=== PATIENT | male | born 1940 | race Hispanic/Latino ===

== ENCOUNTER 2017-04-16 11:03 | Observation (INO) | payer MEDICARE ==
[~2017-04-16] VITALS: Ht 167.6 cm; Wt 113.4 kg
[~2017-04-16 11:03] MED LIST: ADVAIR 100-501 EACH; AMIODARONE HCL200 MG PO; ASPIR 8181 MG PO; ATORVASTATIN CA20 MG PO; ATORVASTATIN CA80 MG PO; CARVEDILOL3.125 MG PO; DEPAKOTE ER500 MG PO; DEXTROSE 50%-WA50 ML IV; DIVALPROEX SOD500 MG PO; FUROSEMIDE20 MG PO; GLIMEPIRIDE1 MG PO; JANUVIA100 MG PO; LANTUS100 UNITS/ SC; LISINOPRIL5 MG PO; METFORMIN HCL1000 MG PO; METOPROLOL SUCC25 MG PO; MYRBETRIQ25 MG PO; MYRBETRIQ50 MG PO; NITROFURANTOIN100 MG PO; NOVOLIN R100 UNIT/1; POTASSIUM CHLO10 ME1 PO; SYMBICORT 16010.2 GM INH; TRAZODONE HCL100 MG PO; VITAMIN C1000 M2 PO; VITAMIN D400 UNIT PO; XARELTO20 MG PO; ZOFRAN ODT4 MG SL; oil of oregano PO
--- NOTE | 2017-04-16 14:54 | Diagnostic Imaging Report ---
PROCEDURE: A single AP view of the chest. COMPARISON: Patients [facility], , CHEST SINGLE (PORTABLE), 03/24/2017, 13:15. INDICATIONS: weak FINDINGS: Lines/tubes: None. Lungs: The lungs are hypoinflated bilaterally. Bibasilar patchy density suggestive of subsegmental atelectasis. Mild prominence of the pulmonary vasculature bilaterally may be related to portable technique and hypoinflation. There is no evidence of pneumonia or pulmonary edema. Pleura: There is no pleural effusion or pneumothorax. Heart and mediastinum: The heart and the mediastinum are unremarkable. Bones: No acute bony abnormality. IMPRESSION: 1. Mild bibasilar subsegmental atelectasis. Daysi Bailey M.D. Dictated by: Daysi Bailey M.D. on 04/16/2017 at 15:02 Electronically approved by: Daysi Bailey M.D. on 04/16/2017 at 15:02
[2017-04-16 15:05] LABS: BASOPHILS % 0.3 % (0.0-1.0); EOSINOPHILS # (AUTO) 0.1 (0.0-0.4); HEMOGLOBIN 10.9 g/dL (14.0-18.0); LYMPHOCYTES # (AUTO) 1.3 (1.0-3.2); LYMPHOCYTES % 21.5 % (18.0-39.1); MEAN CORPUSCULAR HEMOGLOBIN 23.5 pg (28-32); MEAN CORPUSCULAR HGB CONC 30.3 g/dL (31-35); MEAN CORPUSCULAR VOLUME 77.6 fL (81-99); MONOCYTES # (AUTO) 0.4 (0.2-0.8); MONOCYTES % 6.4 % (4.4-11.3); NEUTROPHILS # (AUTO) 4.2 (2.1-6.9); NEUTROPHILS % 70.6 % (38.7-80.0); PLATELET COUNT 169 x10e3/uL (140-360); RED BLOOD COUNT 4.64 x10e6/uL (4.3-5.7); RED CELL DISTRIBUTION WIDTH 17.1 % (11.7-14.4)
[2017-04-16 15:06] LABS: BILIRUBIN,URINE NEGATIVE (NEGATIVE); KETONES,URINE 1+ (NEGATIVE); LEUKOCYTE ESTERASE ,URINE NEGATIVE (NEGATIVE); NITRITE,URINE NEGATIVE (NEGATIVE); PROTEIN,URINE DIPSTICK NEGATIVE (NEGATIVE); URINE UROBILINOGEN 0.2 mg/dL (0.2 - 1)
[2017-04-16 15:09] LABS: CLARITY,URINE SL CLOUDY (CLEAR); COLOR,URINE YELLOW (YELLOW)
[2017-04-16 15:10] LABS: INR 1.14; PROTHROMBIN TIME 15.2 seconds (11.9-14.5)
--- NOTE | 2017-04-16 15:10 | Diagnostic Imaging Report ---
Exam: Head CT without contrast History: Generalized weakness Comparison studies: Head CTs of 04/27/2015 10/31/2014. Technique: Axial images were obtained from the skull base to the vertex. Coronal and sagittal images reconstructed from the axial data. Intravenous contrast: None Findings: Scalp: No abnormalities. Bones: No fractures, blastic or lytic lesions. Brain sulci: Moderately prominent.. Ventricles: Moderate compensatory dilatation. No hydrocephalus. Extra-axial spaces: No masses, no fluid collection. Parenchyma: No mass, acute hemorrhage or acute vascular insults. A few scattered hypodensities in the supratentorial white matter are nonspecific most compatible with chronic small vessel ischemic changes Sellar/suprasellar region: No abnormalities. Craniocervical junction: Patent foramen magnum. No Chiari one malformation. Incidental findings: Atherosclerotic calcifications in the carotid siphons, right intradural vertebral artery and in the basilar artery. IMPRESSION: No acute abnormalities. No changes from the previous head CT of 04/27/2015. Chronic findings: 1. Moderate generalized volume loss. 2. Mild supratentorial microvascular ischemic changes. Signed by: Dr. Barrett Thomson M.D. on 04/16/2017 3:07 PM
[2017-04-16 15:11] LABS: PARTIAL THROMBOPLASTIN TIME 28.8 seconds (23.8-35.5)
[2017-04-16 15:23] LABS: ALANINE AMINOTRANSFERASE 17 IU/L (0-55); ALBUMIN 3.4 g/dL (3.5-5.0); ALBUMIN/GLOBULIN RATIO 0.9 (0.8-2.0); ALKALINE PHOSPHATASE 91 IU/L (40-150); AMYLASE 42 U/L (25-125); ANION GAP 12.2 mmol/L (8-16); BLOOD UREA NITROGEN 17 mg/dL (7-26); BUN/CREATININE RATIO 21 (6-25); CARBON DIOXIDE 29 mmol/L (22-29); CHLORIDE 103 mmol/L (98-107); CREATINE KINASE 145 IU/L (30-200); CREATININE, SERUM 0.81 mg/dL (0.72-1.25); EST GLOMERULAR FILTRATION RATE > 60 ML/MIN (60-); GLUCOSE 118 mg/dL (74-118); LIPASE 7 U/L (8-78); POTASSIUM 4.2 mmol/L (3.5-5.1); SODIUM 140 mmol/L (136-145)
[2017-04-16 15:31] LABS: TROPONIN I 0.026 ng/mL (0-0.300)
[2017-04-16] MEDS ORDERED: DEXTROSE 50% SYRINGE 50 ML IV PRN (19:00)
[2017-04-16] MEDS ORDERED: SODIUM CHLORIDE FLUSH 10 ML SYR INJ PRN (19:00)
[2017-04-16] MEDS ORDERED: ONDANSETRON HCL INJ 2 MG/ML VIAL IV PRN (19:00)
[2017-04-16] MEDS ORDERED: DEPAKOTE ER500 MG PO (19:54)
[2017-04-16] MEDS ORDERED: POTASSIUM CHLO10 ME1 PO (19:54)
[2017-04-16] MEDS ORDERED: CLOTRIMAZOLE-BE15 GM TOP (19:54)
[2017-04-16] MEDS ORDERED: XARELTO20 MG PO (19:54)
[2017-04-16] MEDS ORDERED: PROVENTIL HFA6.7 GM INH (19:54)
[2017-04-16] MEDS ORDERED: FUROSEMIDE40 MG PO (19:54)
[2017-04-16] MEDS ORDERED: LOSARTAN POTASS25 MG PO (19:54)
[2017-04-16] MEDS ORDERED: NOVOLOG100 UNIT/1 (19:54)
[2017-04-16] MEDS ORDERED: BISACODYL5 MG PO (19:54)
[2017-04-16] MEDS ORDERED: SPIRIVA18 MCG INH (19:54)
[2017-04-16] MEDS ORDERED: ALBUTEROL0.63 MG/3 NEB (19:54)
[2017-04-16] MEDS ORDERED: TRAZODONE HCL50 MG PO (19:54)
[2017-04-16] MEDS ORDERED: DOCUSATE SODIU100 MG PO (19:54)
[2017-04-16] MEDS ORDERED: ATORVASTATIN CA20 MG PO (19:54)
[2017-04-16] MEDS ORDERED: TOPROL XL25 MG PO (19:54)
[2017-04-16] MEDS ORDERED: ALBUTEROL/IPRATROPIUM 3 ML NEB NEB PRN (20:00)
[2017-04-16] MEDS ORDERED: BISACODYL 5 MG TAB EC PO PRN (20:00)
[2017-04-16] MEDS ORDERED: ATORVASTATIN 20 MG TAB PO SCH ×2 (21:00)
[2017-04-16] MEDS ORDERED: NON-FORMULARY MEDICATION (Trazodone Hcl 100 MG) PO SCH (21:00)
[2017-04-16] MEDS: INSULIN REGULAR, HUMAN 100 UNIT/1 ML 3ML VIAL SQ SCH (21:00)
[2017-04-16] MEDS ORDERED: TRAZODONE HCL 50 MG TAB PO SCH ×2 (21:00)
[2017-04-16 23:00] VITALS: BP 173/86
[2017-04-16 23:05] LABS: CREATINE KINASE MB 3.1 ng/mL (0.00-5.00); TROPONIN I 0.035 ng/mL (0-0.300)
[2017-04-16] MEDS: DOCUSATE SODIUM 100 MG CAP PO SCH (23:17)
[2017-04-16] MEDS: DEPAKOTE ER 500MG TAB(ONCE DAILY) PO SCH (23:18)
[2017-04-16] MEDS: BETAMETHASONE/CLOTRIMAZOLE CR 15 GM TUBE TOP SCH (23:18)
[2017-04-17 02:46] VITALS: BP 173/86
[2017-04-17 04:00] VITALS: BP 141/66
[2017-04-17] MEDS ORDERED: SALMETEROL/FLUTICASONE 100/50 INH SCH (06:00)
[2017-04-17] MEDS ORDERED: TIOTROPIUM 18 MCG INH POWDER INH SCH (06:00)
[2017-04-17 06:25] LABS: BASOPHILS % 0.5 % (0.0-1.0); EOSINOPHILS # (AUTO) 0.2 (0.0-0.4); EOSINOPHILS % 4.3 % (0.0-6.0); HEMOGLOBIN 10.1 g/dL (14.0-18.0); LYMPHOCYTES # (AUTO) 1.1 (1.0-3.2); MEAN CORPUSCULAR HEMOGLOBIN 23.4 pg (28-32); MEAN CORPUSCULAR HGB CONC 30.6 g/dL (31-35); MEAN CORPUSCULAR VOLUME 76.4 fL (81-99); MONOCYTES # (AUTO) 0.4 (0.2-0.8); MONOCYTES % 7.1 % (4.4-11.3); NEUTROPHILS # (AUTO) 3.8 (2.1-6.9); NEUTROPHILS % 68.9 % (38.7-80.0); PLATELET COUNT 139 x10e3/uL (140-360); RED BLOOD COUNT 4.32 x10e6/uL (4.3-5.7); RED CELL DISTRIBUTION WIDTH 16.8 % (11.7-14.4)
[2017-04-17 06:50] LABS: ALANINE AMINOTRANSFERASE 15 IU/L (0-55); ALBUMIN 2.9 g/dL (3.5-5.0); ALBUMIN/GLOBULIN RATIO 0.8 (0.8-2.0); ALKALINE PHOSPHATASE 81 IU/L (40-150); ANION GAP 12.6 mmol/L (8-16); BLOOD UREA NITROGEN 16 mg/dL (7-26); BUN/CREATININE RATIO 22 (6-25); CALCIUM 8.5 mg/dL (8.4-10.2); CARBON DIOXIDE 26 mmol/L (22-29); CHLORIDE 107 mmol/L (98-107); CREATINE KINASE 120 IU/L (30-200); CREATININE, SERUM 0.73 mg/dL (0.72-1.25); EST GLOMERULAR FILTRATION RATE > 60 ML/MIN (60-); GLUCOSE 137 mg/dL (74-118); POTASSIUM 4.6 mmol/L (3.5-5.1); SODIUM 141 mmol/L (136-145)
[2017-04-17 06:59] LABS: TROPONIN I 0.022 ng/mL (0-0.300)
[2017-04-17] MEDS: INSULIN REGULAR, HUMAN 100 UNIT/1 ML 3ML VIAL SQ SCH ×2 (07:30→12:39)
--- NOTE | 2017-04-17 08:08 | History and Physical ---
[facility] [id number]-old male comes in with near syncopal episode. HISTORY OF PRESENTING ILLNESS: The patient was in usual state of health when he woke up yesterday morning and the patient felt a little dizzy, had 1 episode of nausea, and the patient fell at home from the dizziness, and also had another episode of vomiting after the fall. Patient says he did not pass out completely. No loss of consciousness noted as per patient. The patient complains of mild pain in the buttock area, otherwise no problems. PAST MEDICAL HISTORY: Includes history of hypertension; history of atrial fibrillation; atrial flutter; urinary tract infections, multiple; insomnia; bipolar disease; history of diabetes mellitus, insulin dependent; and also history of COPD; obstructive sleep apnea; and obesity hypoventilation syndrome. MEDICINES: He takes at home are: 1. Albuterol. 2. Atorvastatin 20 mg. 3. Bisacodyl for his constipation. 4. Lasix 40 mg for diastolic dysfunction. 5. Insulin 100 units. 6. Losartan 25. 7. Metoprolol 25 mg. 8. Potassium 10 mEq. 9. Xarelto 20 mg. 10. Spiriva 18. 11. Trazodone 50 mg. PAST SURGICAL HISTORY: History of multiple angiograms. ALLERGIES: ALLERGIC TO PENICILLIN. SOCIAL HISTORY: No ETOH, no IV drug abuse. Lives with daughters and sons who take care of him intermittently. REVIEW OF SYSTEMS: Negative for chest pain. Positive for shortness of breath, but that is baseline for him. Positive for nausea and vomiting. No diarrhea, no constipation. No rectal bleeding. No hematochezia, no hematemesis either or melena. No diplopia, no blurry vision. History of near syncope as noticed above. Currently, the patient is asymptomatic. PHYSICAL EXAMINATION: GENERAL: Patient is alert and oriented x3, on O2. HEENT: Normocephalic, atraumatic. Pupils are reactive to light and accommodation. CVS: S1 and S2. Irregularly irregular. ABDOMEN: Nontender, nondistended. EXTREMITIES: No clubbing, no cyanosis, no edema. BACK: Normal. SKIN: Normal. INTEGUMENTARY: Normal. NEURO: Boubacar score within normal limits. Oriented x3. No focal motor deficits either. EKG, atrial flutter, right bundle-branch block, which is normal for the patient. Chest x-ray showed mild basilar segmental atelectasis; and brain CT showed no acute abnormalities, moderate generalized volume loss and mild microvascular ischemic changes. LAB VALUES: Initial white count was 5.53, hemoglobin of 10.1, hematocrit of 33, platelet count was 139,000. The rest of the labs are normal and chemistries. Coags were INR 1.14. Urine was normal. ASSESSMENT: 1. Near-syncopal episode. 2. History of atrial flutter, on Xarelto. 3. Dizziness, possibly secondary to orthostasis. PLAN: To continue on his home medications. We can discharge him. Troponins have been negative x3. Will see him in the clinic in about a week's time. Will continue on home medications. Further recommendations on clinical course. Job#: [id number]
[2017-04-17 08:15] VITALS: BP 135/64
[2017-04-17] MEDS ORDERED: RIVAROXABAN 20 MG TABLET PO SCH ×2 (09:00)
[2017-04-17] MEDS ORDERED: LOSARTAN POTASSIUM 25 MG TAB PO SCH (09:00)
[2017-04-17] MEDS ORDERED: DEPAKOTE DELAYED-RELEASE TAB 500 MG PO SCH (09:00)
[2017-04-17] MEDS ORDERED: DEPAKOTE ER 500MG TAB(ONCE DAILY) PO SCH (09:00)
[2017-04-17] MEDS ORDERED: METOPROLOL SUCCINATE 25 MG TAB XL PO SCH ×2 (09:00)
[2017-04-17] MEDS ORDERED: POTASSIUM CHLORIDE 10 MEQ TABCR PO SCH ×2 (09:00)
[2017-04-17] MEDS ORDERED: NON-FORMULARY MEDICATION (Ascorbic Acid (Vitamin C) 1,000 MG) PO SCH (09:00)
[2017-04-17] MEDS ORDERED: ASCORBIC ACID 500 MG TAB PO SCH (09:00)
[2017-04-17] MEDS ORDERED: FUROSEMIDE 40 MG TAB PO SCH ×2 (09:00)
[2017-04-17] MEDS: DOCUSATE SODIUM 100 MG CAP PO SCH (10:09)
[2017-04-17] MEDS: DEPAKOTE ER 500MG TAB(ONCE DAILY) PO SCH (10:09)
[2017-04-17] MEDS: BETAMETHASONE/CLOTRIMAZOLE CR 15 GM TUBE TOP SCH (10:10)
[2017-04-17] MEDS ORDERED: ALBUTEROL SULF 0.083% NEB SOLN 3 ML NEB NEB SCH (12:00)
[2017-04-17 12:01] VITALS: BP 137/63
[2017-04-17 15:00] VITALS: BP 167/77
== END 2017-04-17 14:20 | disposition home or self-care (01) ==
LOC: ER 11:03 → IMCU 20:40
PROVIDERS: ADMIT Family Medicine; ATTEND Family Medicine
DX: R55 Syncope and collapse (principal); Z91.81 History of falling; I48.92 Unspecified atrial flutter; Z79.01 Long term (current) use of anticoagulants; R42 Dizziness and giddiness
CPT/HCPCS: 36415 ×2; 70450; 71045; 80053 ×2; 81001; 82150; 82550 ×2; 82553 ×2; 82948 ×2; 83690; 83880; 84484 ×2; 85025 ×2; 85610; 85730; 87086; 87186; 93005 ×2; 93880; 99284; G0378 ×2

== ENCOUNTER 2023-12-29 16:40 | Inpatient (IN) | payer MEDICARE ==
[~2023-12-29] VITALS: Ht 177.8 cm; Wt 104.3 kg
[~2023-12-29 16:40] MED LIST changes: +ALBUTEROL0.63 MG/3 NEB; +BISACODYL5 MG PO; +CLOTRIMAZOLE-BE15 GM TOP; +DOCUSATE SODIU100 MG PO; +ETOMIDATE 2 MG/ML 10 ML INJ IV ONE; +FUROSEMIDE40 MG PO; +LOSARTAN POTASS25 MG PO; +NOVOLOG100 UNIT/1; +PROVENTIL HFA6.7 GM INH; +SPIRIVA18 MCG INH; +TOPROL XL25 MG PO; +TRAZODONE HCL50 MG PO; +VECURONIUM BROMIDE FOR INJ 20 MG VIAL ONE
[2023-12-29 17:24] VITALS: TEMP 98.5
[2023-12-29 18:19] LABS: BASOPHILS % 0.2 % (0.0-1.0); EOSINOPHILS % 0.2 % (0.0-6.0); HEMATOCRIT 31.4 % (38.2-49.6); HEMOGLOBIN 9.3 g/dL (14.0-18.0); LYMPHOCYTES # (AUTO) 0.6 (1.0-3.2); LYMPHOCYTES % 9.2 % (18.0-39.1); MEAN CORPUSCULAR HEMOGLOBIN 27.8 pg (28-32); MEAN CORPUSCULAR HGB CONC 29.6 g/dL (31-35); MEAN CORPUSCULAR VOLUME 93.7 fL (81-99); MONOCYTES # (AUTO) 0.7 (0.2-0.8); MONOCYTES % 10.9 % (4.4-11.3); NEUTROPHILS # (AUTO) 5.1 (2.1-6.9); NEUTROPHILS % 78.9 % (38.7-80.0); PLATELET COUNT 148 x10e3/uL (140-360); RED BLOOD COUNT 3.35 x10e6/uL (4.3-5.7); RED CELL DISTRIBUTION WIDTH 17.1 % (11.7-14.4); WHITE BLOOD COUNT 6.43 x10e3/uL (4.8-10.8)
[2023-12-29 18:26] LABS: INR 2.67; PROTHROMBIN TIME 29.7 seconds (11.9-14.5)
[2023-12-29 18:28] LABS: PARTIAL THROMBOPLASTIN TIME 68.1 seconds (23.8-35.5)
[2023-12-29 18:35] LABS: ALBUMIN 1.8 g/dL (3.5-5.0); ALBUMIN/GLOBULIN RATIO 0.4 (0.8-2.0); ANION GAP 13.4 mmol/L (8-16); BILIRUBIN,TOTAL 0.5 mg/dL (0.2-1.2); CALCIUM 8.4 mg/dL (8.4-10.2); CREATININE, SERUM 1.4 mg/dL (0.72-1.25); MAGNESIUM 2.2 MG/DL (1.3-2.1); POTASSIUM 5.4 mmol/L (3.5-5.1)
[2023-12-29 18:40] LABS: TROPONIN I 0.067 ng/mL (0-0.300)
[2023-12-29] MEDS: MEROPENEM 1 GM in SODIUM CHLORIDE 0.9% 100 ML IV ONE (19:22)
[2023-12-29] MEDS: SODIUM CHLORIDE 0.9% 1000ML 1,000 ML IV STA (19:22)
[2023-12-29] MEDS ORDERED: IOPAMIDOL 370 MG/ML 100 ML INFUS..BTL INJ ONE (19:41)
[2023-12-29 19:54] LABS: BILIRUBIN,URINE NEGATIVE (NEGATIVE); CLARITY,URINE SL CLOUDY (CLEAR); COLOR,URINE YELLOW (YELLOW); GLUCOSE, URINE NEGATIVE (NEGATIVE); KETONES,URINE NEGATIVE (NEGATIVE); LEUKOCYTE ESTERASE ,URINE NEGATIVE (NEGATIVE); NITRITE,URINE NEGATIVE (NEGATIVE); PH,URINE 5.5 (5 - 7); PROTEIN,URINE DIPSTICK NEGATIVE (NEGATIVE); URINE UROBILINOGEN 0.2 mg/dL (0.2 - 1)
[2023-12-29] MEDS ORDERED: ONDANSETRON HCL INJ 2MG/ML 2ML 2 MG/ML VIAL IV PRN (20:00)
[2023-12-29] MEDS ORDERED: Morphine 4mg INJECTION 4 MG/ML INJ IV PRN (20:00)
[2023-12-29 20:08] LABS: BACTERIA,URINE MODERATE /HPF; WBC,URINE (MAN) 0-5 /HPF (0-5)
[2023-12-29 20:09] LABS: HYALINE CASTS 0-1 (0-1)
[2023-12-29] MEDS: Vancomycin IV 1 GM in SODIUM CHLORIDE 0.9% 250ML 250 ML IV ONE (20:13)
[2023-12-29] MEDS: SODIUM BICARBONATE 8.4% INJ 50 ML SYR IV STA (20:17)
[2023-12-29] MEDS: DEXTROSE 50% SYRINGE 50 ML IV ONE (20:17)
[2023-12-29] MEDS: FUROSEMIDE INJ 10 MG/ML 10 ML VIAL IV ONE (20:17)
[2023-12-29] MEDS: INSULIN REGULAR, HUMAN 100 UNIT/1 ML IV ONE (20:19)
[2023-12-29 21:30] VITALS: PULSE 79; RESP 21; O2SAT 100
[2023-12-29] MEDS: ALBUTEROL SULF 0.083% NEB SOLN 3 ML NEB NEB STA (22:02)
[2023-12-29 22:53] VITALS: PULSE 94; RESP 15
[2023-12-29 22:54] LABS: TROPONIN I 0.043 ng/mL (0-0.300)
[2023-12-29 23:30] VITALS: BP 106/78; PULSE 81; RESP 20; TEMP 98.8; O2SAT 96
[2023-12-30] VITALS (9 sets, daily range): BP systolic 96–139; BP diastolic 55–80; PULSE 62–105; RESP 18–20; TEMP 98–100.8; O2SAT 92–98
[2023-12-30 05:32] LABS: BASOPHILS % 0.2 % (0.0-1.0); HEMATOCRIT 33.4 % (38.2-49.6); HEMOGLOBIN 9.8 g/dL (14.0-18.0); LYMPHOCYTES # (AUTO) 0.7 (1.0-3.2); LYMPHOCYTES % 7.4 % (18.0-39.1); MEAN CORPUSCULAR HEMOGLOBIN 27.8 pg (28-32); MEAN CORPUSCULAR HGB CONC 29.3 g/dL (31-35); MEAN CORPUSCULAR VOLUME 94.6 fL (81-99); MONOCYTES # (AUTO) 2.1 (0.2-0.8); MONOCYTES % 22.2 % (4.4-11.3); NEUTROPHILS # (AUTO) 6.6 (2.1-6.9); NEUTROPHILS % 69.4 % (38.7-80.0); PLATELET COUNT 127 x10e3/uL (140-360); RED BLOOD COUNT 3.53 x10e6/uL (4.3-5.7); RED CELL DISTRIBUTION WIDTH 17.3 % (11.7-14.4); WHITE BLOOD COUNT 9.46 x10e3/uL (4.8-10.8)
[2023-12-30 05:56] LABS: ALBUMIN 1.7 g/dL (3.5-5.0); ALBUMIN/GLOBULIN RATIO 0.4 (0.8-2.0); ANION GAP 15.4 mmol/L (8-16); BILIRUBIN,TOTAL 0.4 mg/dL (0.2-1.2); CALCIUM 8.2 mg/dL (8.4-10.2); CREATININE, SERUM 1.45 mg/dL (0.72-1.25); TOTAL PROTEIN 5.6 g/dL (6.5-8.1)
[2023-12-30 06:07] LABS: POTASSIUM 5.4 mmol/L (3.5-5.1)
[2023-12-30 06:41] LABS: TROPONIN I 0.087 ng/mL (0-0.300)
[2023-12-30] MEDS ORDERED: VESICARE5 MG PO (07:17)
[2023-12-30] MEDS ORDERED: FLONASE ALLERG9.9 ML INH (07:17)
[2023-12-30] MEDS ORDERED: PROTONIX20 MG PO (07:19)
[2023-12-30] MEDS ORDERED: losartan (07:21)
[2023-12-30] MEDS ORDERED: POTASSIUM (07:30)
[2023-12-30] MEDS ORDERED: INSULIN PEN (07:31)
[2023-12-30 08:00] LABS: LYMPHOCYTES % (MANUAL) 5 % (19-48); MONOCYTES % (MANUAL) 17 % (3.4-9.0); NEUTROPHILS % (MANUAL) 78 % (40-74); PLATELET ESTIMATE SLIGHTLY DECREASED; PLATELET MORPHOLOGY COMMENT NORMAL; RBC MORPHOLOGY COMMENT NORMAL
[2023-12-30] MEDS ORDERED: DEXTROSE 50% SYRINGE 50 ML IV PRN (08:15)
[2023-12-30] MEDS ORDERED: BISACODYL 10 MG SUPP PR PRN (08:15)
[2023-12-30] MEDS ORDERED: ALBUTEROL/IPRATROPIUM 3 ML NEB NEB PRN (08:15)
[2023-12-30] MEDS: FUROSEMIDE INJ 10 MG/ML 4 ML VIAL IV SCH (10:09)
[2023-12-30] MEDS: ENOXAPARIN SOD INJ 40 MG/0.4 ML SYR SC SCH (10:10)
[2023-12-30] MEDS: BISACODYL 5 MG TAB EC PO ONE (10:13)
[2023-12-30] MEDS: LACTULOSE SYRUP 20 GM/30 ML UDC PO SCH (10:13)
[2023-12-30] MEDS: SODIUM CHLORIDE 0.9% 250ML 250 ML ONE (10:13)
[2023-12-30] MEDS: ALBUTEROL/IPRATROPIUM 3 ML NEB NEB SCH (10:44)
[2023-12-30] MEDS: INSULIN LISPRO 100 UNIT/1 ML 3ML VIAL SQ SCH (11:30)
[2023-12-30] MEDS: SODIUM CHLORIDE 0.9% 1000ML 1,000 ML IV SCH (12:15)
[2023-12-30] MEDS: SOD POLYSTYRENE SULFONATE SUSP 15 GM/60 ML BTL PO ONE (12:15)
[2023-12-30] MEDS: LACTULOSE SYRUP 20 GM/30 ML UDC PO ONE (12:15)
[2023-12-30] MEDS: METOPROLOL TARTRATE 25 MG TAB PO SCH (12:30)
[2023-12-30 15:10] LABS: TROPONIN I 0.136 ng/mL (0-0.300)
[2023-12-30] MEDS: DEPAKOTE DELAYED-RELEASE TAB 500 MG PO SCH (21:54)
[2023-12-31] VITALS (12 sets, daily range): BP systolic 90–114; BP diastolic 59–76; PULSE 62–97; RESP 18–22; TEMP 97.5–98.4; O2SAT 93–98
[2023-12-31 02:32] LABS: CREATININE,URINE RANDOM 132.04 mg/dL (63-166)
[2023-12-31 03:21] LABS: TOTAL PROTEIN, URINE 145.8 mg/dL (1-14)
[2023-12-31 06:00] LABS: BASOPHILS # (AUTO) 0.1 (0.0-0.1); BASOPHILS % 0.4 % (0.0-1.0); EOSINOPHILS % 0.1 % (0.0-6.0); HEMATOCRIT 26.6 % (38.2-49.6); HEMOGLOBIN 8.1 g/dL (14.0-18.0); LYMPHOCYTES % 8.8 % (18.0-39.1); MEAN CORPUSCULAR HEMOGLOBIN 28.1 pg (28-32); MEAN CORPUSCULAR HGB CONC 30.5 g/dL (31-35); MEAN CORPUSCULAR VOLUME 92.4 fL (81-99); MONOCYTES # (AUTO) 2.1 (0.2-0.8); MONOCYTES % 17.5 % (4.4-11.3); NEUTROPHILS # (AUTO) 8.5 (2.1-6.9); NEUTROPHILS % 71.8 % (38.7-80.0); PLATELET COUNT 171 x10e3/uL (140-360); RED BLOOD COUNT 2.88 x10e6/uL (4.3-5.7); RED CELL DISTRIBUTION WIDTH 17.3 % (11.7-14.4); WHITE BLOOD COUNT 11.85 x10e3/uL (4.8-10.8)
[2023-12-31 06:23] LABS: INR 1.55; PROTHROMBIN TIME 19.3 seconds (11.9-14.5)
[2023-12-31 06:36] LABS: ALBUMIN 1.5 g/dL (3.5-5.0); ALBUMIN/GLOBULIN RATIO 0.4 (0.8-2.0); ANION GAP 15.1 mmol/L (8-16); BILIRUBIN,TOTAL 0.5 mg/dL (0.2-1.2); CALCIUM 7.9 mg/dL (8.4-10.2); CREATININE, SERUM 2.45 mg/dL (0.72-1.25); POTASSIUM 4.1 mmol/L (3.5-5.1); TOTAL PROTEIN 5.3 g/dL (6.5-8.1)
[2023-12-31 06:54] LABS: MAGNESIUM 2.6 MG/DL (1.3-2.1); PHOSPHORUS 6.1 MG/DL (2.3-4.7)
[2023-12-31] MEDS: IRON SUCROSE 100 MG in SODIUM CHLORIDE 0.9% 100 ML IV SCH (10:43)
[2023-12-31] MEDS ORDERED: ONDANSETRON HCL 4 MG ORAL DISINTEGRATING TAB PO PRN (12:30)
[2023-12-31] MEDS: SODIUM CHLORIDE 0.9% 1000ML 1,000 ML IV ONE (14:23)
[2023-12-31 17:18] LABS: THYROID STIMULATING HORMONE 2.019 uIU/mL (0.350-4.940)
[2024-01-01] VITALS (27 sets, daily range): BP systolic 78–139; BP diastolic 42–74; PULSE 36–108; RESP 15–22; TEMP 97.5–98.4; O2SAT 91–100
[2024-01-01 05:35] LABS: BASOPHILS # (AUTO) 0.1 (0.0-0.1); BASOPHILS % 0.6 % (0.0-1.0); HEMATOCRIT 28.5 % (38.2-49.6); HEMOGLOBIN 8.4 g/dL (14.0-18.0); LYMPHOCYTES # (AUTO) 1.1 (1.0-3.2); LYMPHOCYTES % 7.6 % (18.0-39.1); MEAN CORPUSCULAR HEMOGLOBIN 27.8 pg (28-32); MEAN CORPUSCULAR HGB CONC 29.5 g/dL (31-35); MEAN CORPUSCULAR VOLUME 94.4 fL (81-99); MONOCYTES # (AUTO) 1.9 (0.2-0.8); MONOCYTES % 13.2 % (4.4-11.3); NEUTROPHILS # (AUTO) 10.6 (2.1-6.9); NEUTROPHILS % 74.6 % (38.7-80.0); PLATELET COUNT 240 x10e3/uL (140-360); RED BLOOD COUNT 3.02 x10e6/uL (4.3-5.7); RED CELL DISTRIBUTION WIDTH 17.4 % (11.7-14.4); WHITE BLOOD COUNT 14.13 x10e3/uL (4.8-10.8)
[2024-01-01 05:59] LABS: ALBUMIN 1.6 g/dL (3.5-5.0); ALBUMIN/GLOBULIN RATIO 0.4 (0.8-2.0); ANION GAP 17.8 mmol/L (8-16); BILIRUBIN,TOTAL 0.5 mg/dL (0.2-1.2); CREATININE, SERUM 3.71 mg/dL (0.72-1.25); POTASSIUM 3.8 mmol/L (3.5-5.1); TOTAL PROTEIN 5.9 g/dL (6.5-8.1)
[2024-01-01] MEDS: HYDRALAZINE HCL 20 MG/ML VIAL IV PRN (12:14)
[2024-01-01 13:05] LABS: ABG HCO3 23 mmol/L (22-26); ABG PCO2 51 mmHg (35-45); ABG PH 7.26 (7.35-7.45); ABG PO2 106 mmHg (80-105); ABG TCO2 24
[2024-01-01] MEDS: FUROSEMIDE INJ 10 MG/ML 4 ML VIAL IV ONE (13:26)
[2024-01-01] MEDS: NOREPINEPHRINE 8 MG/D5W 250 ML 250 ML IV SCH (14:17)
[2024-01-01] MEDS: SODIUM BICARBONATE 650 MG TAB PO SCH (16:16)
[2024-01-01 16:25] LABS: ABG HCO3 22 mmol/L (22-26); ABG PCO2 33 mmHg (35-45); ABG PH 7.43 (7.35-7.45); ABG PO2 129 mmHg (80-105); ABG TCO2 23
[2024-01-01] MEDS ORDERED: ALBUMIN 5% 0.05 GM/ML BTL IV ONE (16:30)
[2024-01-01] MEDS: FENTANYL 2000MCG/NS 250 250 ML IV PRN (16:33)
[2024-01-01] MEDS: ALBUMIN 5% 250ML 250 ML IV ONE (18:18)
[2024-01-01] MEDS: ENOXAPARIN SOD INJ 40 MG/0.4 ML SYR SC SCH (18:18)
[2024-01-01] MEDS: SODIUM CHLORIDE 0.9% 1000ML 1,000 ML ONE (19:09)
[2024-01-01] MEDS: SODIUM CHLORIDE 0.9% 100 ML ONE (19:09)
[2024-01-01] MEDS: FUROSEMIDE INJ 10 MG/ML 4 ML VIAL IV SCH (21:33)
[2024-01-02] VITALS (94 sets, daily range): BP systolic 78–163; BP diastolic 40–83; PULSE 45–111; RESP 14–20; TEMP 98.1–99.5; O2SAT 91–100
[2024-01-02 07:11] LABS: ANION GAP 18.9 mmol/L (8-16); CALCIUM 7.8 mg/dL (8.4-10.2); CREATININE, SERUM 3.65 mg/dL (0.72-1.25); MAGNESIUM 2.8 MG/DL (1.3-2.1); PHOSPHORUS 7.4 MG/DL (2.3-4.7); POTASSIUM 3.9 mmol/L (3.5-5.1)
[2024-01-02 07:17] LABS: ABG HCO3 23 mmol/L (22-26); ABG PCO2 36 mmHg (35-45); ABG PH 7.41 (7.35-7.45); ABG PO2 198 mmHg (80-105); ABG TCO2 24
[2024-01-02] MEDS ORDERED: MANNITOL 25% 12.5GM/50 ML VIAL IV PRN (14:00)
[2024-01-02] MEDS: FAMOTIDINE 20 MG/2 ML VIAL IV SCH (16:57)
[2024-01-02] MEDS: SODIUM CHLORIDE 0.9% 1000ML 2,000 ML ONE (20:08)
[2024-01-02] MEDS: HEPARIN SOD (PORCINE) 5,000 UNIT/ML VIAL SC SCH (21:41)
[2024-01-03] VITALS (91 sets, daily range): BP systolic 5–141; BP diastolic 1–102; PULSE 31–121; RESP 11–26; TEMP 97.9–99.4; O2SAT 88–100
[2024-01-03 06:43] LABS: BASOPHILS # (AUTO) 0.1 (0.0-0.1); BASOPHILS % 0.5 % (0.0-1.0); EOSINOPHILS # (AUTO) 0.1 (0.0-0.4); EOSINOPHILS % 0.8 % (0.0-6.0); HEMATOCRIT 23.2 % (38.2-49.6); HEMOGLOBIN 7.1 g/dL (14.0-18.0); LYMPHOCYTES # (AUTO) 1.5 (1.0-3.2); LYMPHOCYTES % 11.2 % (18.0-39.1); MEAN CORPUSCULAR HEMOGLOBIN 28.1 pg (28-32); MEAN CORPUSCULAR HGB CONC 30.6 g/dL (31-35); MEAN CORPUSCULAR VOLUME 91.7 fL (81-99); MONOCYTES # (AUTO) 1.5 (0.2-0.8); MONOCYTES % 11.1 % (4.4-11.3); NEUTROPHILS # (AUTO) 9.4 (2.1-6.9); NEUTROPHILS % 69.2 % (38.7-80.0); PLATELET COUNT 321 x10e3/uL (140-360); RED BLOOD COUNT 2.53 x10e6/uL (4.3-5.7); RED CELL DISTRIBUTION WIDTH 17.6 % (11.7-14.4); WHITE BLOOD COUNT 13.54 x10e3/uL (4.8-10.8)
[2024-01-03 09:22] LABS: ABG HCO3 26 mmol/L (22-26); ABG PCO2 42 mmHg (35-45); ABG PH 7.41 (7.35-7.45); ABG PO2 89 mmHg (80-105); ABG TCO2 27
[2024-01-03 09:39] LABS: ALBUMIN 1.6 g/dL (3.5-5.0); ALBUMIN/GLOBULIN RATIO 0.5 (0.8-2.0); ANION GAP 15.3 mmol/L (8-16); BILIRUBIN,TOTAL 0.5 mg/dL (0.2-1.2); CALCIUM 7.5 mg/dL (8.4-10.2); CREATININE, SERUM 2.48 mg/dL (0.72-1.25); TOTAL PROTEIN 5.1 g/dL (6.5-8.1)
[2024-01-03 09:40] LABS: EOSINOPHILS % (MANUAL) 1 % (0-7); LYMPHOCYTES % (MANUAL) 14 % (19-48); MONOCYTES % (MANUAL) 9 % (3.4-9.0); MYELOCYTES % (MANUAL) 1 % (0-0); NEUTROPHILS % (MANUAL) 75 % (40-74); PLATELET ESTIMATE ADEQUATE; PLATELET MORPHOLOGY COMMENT NORMAL; RBC MORPHOLOGY COMMENT NORMAL
[2024-01-03 09:45] LABS: POTASSIUM 3.3 mmol/L (3.5-5.1)
[2024-01-03 09:59] LABS: MAGNESIUM 2.4 MG/DL (1.3-2.1); PHOSPHORUS 4.8 MG/DL (2.3-4.7)
[2024-01-03 11:09] LABS: ABG HCO3 27 mmol/L (22-26); ABG PCO2 45 mmHg (35-45); ABG PH 7.39 (7.35-7.45); ABG PO2 109 mmHg (80-105); ABG TCO2 28
[2024-01-03] MEDS ORDERED: ALBUMIN 25% 12.5GM 0.25 GM/ML BTL IV PRN (12:15)
[2024-01-03] MEDS: LEVALBUTEROL HCL SOLN NEBU 0.63 MG/3 ML NEB INH PRN (13:39)
[2024-01-03 20:13] LABS: HEMATOCRIT 25.6 % (38.2-49.6); HEMOGLOBIN 7.6 g/dL (14.0-18.0)
[2024-01-03] MEDS: ALBUMIN 25% 12.5GM 50ML 50 ML IV ONE (22:41)
[2024-01-03] MEDS: SODIUM CHLORIDE 0.9% 1000ML 2,000 ML ONE (22:41)
[2024-01-03] MEDS: SODIUM CHLORIDE 0.9% 250ML 250 ML IV ONE (22:42)
[2024-01-03] MEDS: SODIUM CHLORIDE 0.9% 500ML 500 ML ONE (22:44)
[2024-01-04] VITALS (84 sets, daily range): BP systolic 60–146; BP diastolic 40–115; PULSE 37–133; RESP 11–28; TEMP 97.3–98.5; O2SAT 86–99
[2024-01-04 06:46] LABS: BASOPHILS # (AUTO) 0.1 (0.0-0.1); BASOPHILS % 0.7 % (0.0-1.0); EOSINOPHILS # (AUTO) 0.1 (0.0-0.4); EOSINOPHILS % 0.9 % (0.0-6.0); HEMATOCRIT 27.6 % (38.2-49.6); HEMOGLOBIN 8.2 g/dL (14.0-18.0); LYMPHOCYTES # (AUTO) 1.4 (1.0-3.2); LYMPHOCYTES % 9.3 % (18.0-39.1); MEAN CORPUSCULAR HGB CONC 29.7 g/dL (31-35); MEAN CORPUSCULAR VOLUME 94.2 fL (81-99); MONOCYTES # (AUTO) 1.4 (0.2-0.8); MONOCYTES % 9.5 % (4.4-11.3); NEUTROPHILS % 72.5 % (38.7-80.0); PLATELET COUNT 282 x10e3/uL (140-360); RED BLOOD COUNT 2.93 x10e6/uL (4.3-5.7); RED CELL DISTRIBUTION WIDTH 17.8 % (11.7-14.4); WHITE BLOOD COUNT 15.16 x10e3/uL (4.8-10.8)
[2024-01-04 07:09] LABS: ALBUMIN/GLOBULIN RATIO 0.5 (0.8-2.0); ANION GAP 15.5 mmol/L (8-16); BILIRUBIN,TOTAL 0.7 mg/dL (0.2-1.2); CALCIUM 8.2 mg/dL (8.4-10.2); CREATININE, SERUM 1.86 mg/dL (0.72-1.25); POTASSIUM 3.5 mmol/L (3.5-5.1); TOTAL PROTEIN 5.8 g/dL (6.5-8.1)
[2024-01-04] MEDS ORDERED: SODIUM CHLORIDE 0.9% 1000ML 2,000 ML IV PRN (08:30)
[2024-01-04] MEDS: METOPROLOL TARTRATE 25 MG TAB PO SCH (08:49)
[2024-01-04] MEDS: FUROSEMIDE INJ 10 MG/ML 4 ML VIAL IV SCH (12:55)
[2024-01-05] VITALS (90 sets, daily range): BP systolic 65–170; BP diastolic 42–89; PULSE 40–114; RESP 13–35; TEMP 98.4–99.9; O2SAT 88–99
[2024-01-05 06:37] LABS: BASOPHILS # (AUTO) 0.1 (0.0-0.1); BASOPHILS % 0.6 % (0.0-1.0); EOSINOPHILS # (AUTO) 0.2 (0.0-0.4); EOSINOPHILS % 1.1 % (0.0-6.0); HEMATOCRIT 28.9 % (38.2-49.6); HEMOGLOBIN 8.7 g/dL (14.0-18.0); LYMPHOCYTES # (AUTO) 1.2 (1.0-3.2); LYMPHOCYTES % 7.4 % (18.0-39.1); MEAN CORPUSCULAR HEMOGLOBIN 28.1 pg (28-32); MEAN CORPUSCULAR HGB CONC 30.1 g/dL (31-35); MEAN CORPUSCULAR VOLUME 93.2 fL (81-99); MONOCYTES # (AUTO) 1.4 (0.2-0.8); MONOCYTES % 8.6 % (4.4-11.3); NEUTROPHILS % 75.5 % (38.7-80.0); PLATELET COUNT 262 x10e3/uL (140-360); RED CELL DISTRIBUTION WIDTH 18.6 % (11.7-14.4)
[2024-01-05 07:16] LABS: ALBUMIN/GLOBULIN RATIO 0.6 (0.8-2.0); ANION GAP 10.9 mmol/L (8-16); BILIRUBIN,TOTAL 0.6 mg/dL (0.2-1.2); CALCIUM 7.7 mg/dL (8.4-10.2); CREATININE, SERUM 1.64 mg/dL (0.72-1.25); TOTAL PROTEIN 5.3 g/dL (6.5-8.1)
[2024-01-05 07:17] LABS: POTASSIUM 2.9 mmol/L (3.5-5.1)
[2024-01-05] MEDS: POTASSIUM CHLORIDE 20MEQ/100ML 100 ML IV ONE (08:03)
[2024-01-05] MEDS ORDERED: ACETAMINOPHEN 325 MG TAB PO PRN (08:45)
[2024-01-05] MEDS: COLLAGENASE 5 GM TUBE TP SCH (09:08)
[2024-01-06] VITALS (98 sets, daily range): BP systolic 69–230; BP diastolic 41–223; PULSE 37–82; RESP 11–32; TEMP 98.2–98.5; O2SAT 93–100
[2024-01-06 09:13] LABS: BASOPHILS % 0.4 % (0.0-1.0); EOSINOPHILS # (AUTO) 0.2 (0.0-0.4); EOSINOPHILS % 1.7 % (0.0-6.0); HEMATOCRIT 27.2 % (38.2-49.6); LYMPHOCYTES # (AUTO) 1.2 (1.0-3.2); LYMPHOCYTES % 10.4 % (18.0-39.1); MEAN CORPUSCULAR HEMOGLOBIN 27.7 pg (28-32); MEAN CORPUSCULAR HGB CONC 29.4 g/dL (31-35); MEAN CORPUSCULAR VOLUME 94.1 fL (81-99); MONOCYTES # (AUTO) 0.9 (0.2-0.8); MONOCYTES % 8.2 % (4.4-11.3); NEUTROPHILS # (AUTO) 8.2 (2.1-6.9); NEUTROPHILS % 73.3 % (38.7-80.0); PLATELET COUNT 225 x10e3/uL (140-360); RED BLOOD COUNT 2.89 x10e6/uL (4.3-5.7); RED CELL DISTRIBUTION WIDTH 18.5 % (11.7-14.4); WHITE BLOOD COUNT 11.13 x10e3/uL (4.8-10.8)
[2024-01-06] MEDS: HEPARIN SOD (PORCINE) 1000 UNIT/ML SDV IV PRN (09:21)
[2024-01-06 09:36] LABS: ALBUMIN 1.9 g/dL (3.5-5.0); ALBUMIN/GLOBULIN RATIO 0.6 (0.8-2.0); BILIRUBIN,TOTAL 0.5 mg/dL (0.2-1.2); CALCIUM 7.8 mg/dL (8.4-10.2); CREATININE, SERUM 1.39 mg/dL (0.72-1.25)
[2024-01-06] MEDS: POTASSIUM CHLORIDE 20MEQ/100ML 100 ML IV SCH (10:34)
[2024-01-07] VITALS (81 sets, daily range): BP systolic 64–168; BP diastolic 43–141; PULSE 42–123; RESP 13–27; TEMP 97.8–99.2; O2SAT 92–100
[2024-01-07 06:54] LABS: BASOPHILS % 0.2 % (0.0-1.0); EOSINOPHILS # (AUTO) 0.3 (0.0-0.4); HEMATOCRIT 29.3 % (38.2-49.6); HEMOGLOBIN 8.6 g/dL (14.0-18.0); LYMPHOCYTES # (AUTO) 2.2 (1.0-3.2); LYMPHOCYTES % 16.7 % (18.0-39.1); MEAN CORPUSCULAR HEMOGLOBIN 28.3 pg (28-32); MEAN CORPUSCULAR HGB CONC 29.4 g/dL (31-35); MEAN CORPUSCULAR VOLUME 96.4 fL (81-99); MONOCYTES # (AUTO) 1.1 (0.2-0.8); NEUTROPHILS # (AUTO) 8.9 (2.1-6.9); NEUTROPHILS % 66.9 % (38.7-80.0); PLATELET COUNT 244 x10e3/uL (140-360); RED BLOOD COUNT 3.04 x10e6/uL (4.3-5.7); RED CELL DISTRIBUTION WIDTH 18.9 % (11.7-14.4); WHITE BLOOD COUNT 13.28 x10e3/uL (4.8-10.8)
[2024-01-07 07:17] LABS: ALBUMIN 1.8 g/dL (3.5-5.0); ALBUMIN/GLOBULIN RATIO 0.5 (0.8-2.0); ANION GAP 12.3 mmol/L (8-16); BILIRUBIN,TOTAL 0.4 mg/dL (0.2-1.2); CALCIUM 7.7 mg/dL (8.4-10.2); CREATININE, SERUM 1.12 mg/dL (0.72-1.25); TOTAL PROTEIN 5.1 g/dL (6.5-8.1)
[2024-01-07 07:22] LABS: POTASSIUM 3.3 mmol/L (3.5-5.1)
[2024-01-07] MEDS: POTASSIUM CHLORIDE 20MEQ/100ML 200 ML IV ONE (08:51)
[2024-01-07] MEDS: BUMETANIDE INJ 0.25MG/ML 4ML VIAL IV SCH (10:33)
[2024-01-07] MEDS: POTASSIUM CHLORIDE 20MEQ/100ML 100 ML IV ONE (12:08)
[2024-01-08] VITALS (61 sets, daily range): BP systolic 85–147; BP diastolic 43–120; PULSE 33–139; RESP 11–25; TEMP 98.4–99.2; O2SAT 91–100
[2024-01-08 06:06] LABS: BASOPHILS # (AUTO) 0.1 (0.0-0.1); BASOPHILS % 0.6 % (0.0-1.0); EOSINOPHILS # (AUTO) 0.2 (0.0-0.4); EOSINOPHILS % 1.8 % (0.0-6.0); HEMATOCRIT 27.4 % (38.2-49.6); HEMOGLOBIN 8.1 g/dL (14.0-18.0); LYMPHOCYTES # (AUTO) 1.5 (1.0-3.2); LYMPHOCYTES % 14.7 % (18.0-39.1); MEAN CORPUSCULAR HEMOGLOBIN 28.3 pg (28-32); MEAN CORPUSCULAR HGB CONC 29.6 g/dL (31-35); MEAN CORPUSCULAR VOLUME 95.8 fL (81-99); MONOCYTES # (AUTO) 0.7 (0.2-0.8); MONOCYTES % 6.4 % (4.4-11.3); NEUTROPHILS # (AUTO) 7.4 (2.1-6.9); NEUTROPHILS % 72.2 % (38.7-80.0); PLATELET COUNT 218 x10e3/uL (140-360); RED BLOOD COUNT 2.86 x10e6/uL (4.3-5.7); RED CELL DISTRIBUTION WIDTH 19.1 % (11.7-14.4); WHITE BLOOD COUNT 10.21 x10e3/uL (4.8-10.8)
[2024-01-08 06:35] LABS: ALBUMIN 1.8 g/dL (3.5-5.0); ALBUMIN/GLOBULIN RATIO 0.5 (0.8-2.0); ANION GAP 10.1 mmol/L (8-16); BILIRUBIN,TOTAL 0.4 mg/dL (0.2-1.2); CREATININE, SERUM 0.87 mg/dL (0.72-1.25); POTASSIUM 3.1 mmol/L (3.5-5.1); TOTAL PROTEIN 5.1 g/dL (6.5-8.1)
[2024-01-08] MEDS: POTASSIUM CHLORIDE 20MEQ/100ML 200 ML IV ONE (09:20)
[2024-01-08] MEDS: POTASSIUM CHLORIDE 20MEQ/100ML 100 ML IV ONE (19:42)
[2024-01-09] VITALS (26 sets, daily range): BP systolic 115–158; BP diastolic 59–98; PULSE 55–104; RESP 14–22; TEMP 98–98.7; O2SAT 94–100
[2024-01-09 07:18] LABS: ALBUMIN 2.1 g/dL (3.5-5.0); ALBUMIN/GLOBULIN RATIO 0.6 (0.8-2.0); BILIRUBIN,TOTAL 0.6 mg/dL (0.2-1.2); CALCIUM 8.5 mg/dL (8.4-10.2); CREATININE, SERUM 0.74 mg/dL (0.72-1.25); MAGNESIUM 1.5 MG/DL (1.3-2.1); PHOSPHORUS 2.3 MG/DL (2.3-4.7); TOTAL PROTEIN 5.7 g/dL (6.5-8.1)
[2024-01-09] MEDS ORDERED: POTASSIUM CHLORIDE 20MEQ/100ML 200 ML IV ONE (08:30)
[2024-01-09] MEDS: KCL 20 MEQ PACKET/ ORAL SOLN NG STA (09:01)
[2024-01-09] MEDS: HEPARIN SOD (PORCINE) 5,000 UNIT/ML VIAL SC SCH (09:04)
[2024-01-09] MEDS: FUROSEMIDE INJ 10 MG/ML 2 ML VIAL IV ONE (17:53)
[2024-01-09] MEDS ORDERED: ONDANSETRON HCL 4 MG ORAL DISINTEGRATING TAB GT PRN (19:45)
[2024-01-09] MEDS: TRAZODONE HCL 50 MG TAB NG SCH (21:27)
[2024-01-09] MEDS: METOPROLOL TARTRATE 25 MG TAB NG SCH (21:28)
[2024-01-09] MEDS: VALPROATE 250MG/5ML ORAL LIQ 5ml NG SCH (21:35)
[2024-01-09] MEDS: LACTULOSE SYRUP 20 GM/30 ML UDC NG SCH (22:08)
[2024-01-10] VITALS (16 sets, daily range): BP systolic 102–163; BP diastolic 59–77; PULSE 56–80; RESP 14–24; TEMP 97.6–98.4; O2SAT 96–100
[2024-01-10 07:34] LABS: BASOPHILS # (AUTO) 0.1 (0.0-0.1); BASOPHILS % 0.5 % (0.0-1.0); EOSINOPHILS # (AUTO) 0.2 (0.0-0.4); EOSINOPHILS % 1.6 % (0.0-6.0); HEMATOCRIT 28.2 % (38.2-49.6); HEMOGLOBIN 8.4 g/dL (14.0-18.0); LYMPHOCYTES # (AUTO) 1.6 (1.0-3.2); LYMPHOCYTES % 16.7 % (18.0-39.1); MEAN CORPUSCULAR HGB CONC 29.8 g/dL (31-35); MEAN CORPUSCULAR VOLUME 97.2 fL (81-99); MONOCYTES # (AUTO) 0.5 (0.2-0.8); MONOCYTES % 5.3 % (4.4-11.3); NEUTROPHILS % 73.3 % (38.7-80.0); PLATELET COUNT 216 x10e3/uL (140-360); RED CELL DISTRIBUTION WIDTH 19.6 % (11.7-14.4); WHITE BLOOD COUNT 9.59 x10e3/uL (4.8-10.8)
[2024-01-10 08:03] LABS: ALBUMIN 1.9 g/dL (3.5-5.0); ALBUMIN/GLOBULIN RATIO 0.6 (0.8-2.0); ANION GAP 10.8 mmol/L (8-16); BILIRUBIN,TOTAL 0.4 mg/dL (0.2-1.2); CALCIUM 8.1 mg/dL (8.4-10.2); CREATININE, SERUM 0.67 mg/dL (0.72-1.25); TOTAL PROTEIN 5.3 g/dL (6.5-8.1)
[2024-01-10 08:07] LABS: POTASSIUM 2.8 mmol/L (3.5-5.1)
[2024-01-10] MEDS: SODIUM BICARBONATE 650 MG TAB NG SCH (10:31)
[2024-01-10] MEDS: POTASSIUM CHLORIDE 20 MEQ TAB CR PO STA (10:32)
[2024-01-10] MEDS: ACETAMINOPHEN 325 MG TAB NG PRN (11:41)
[2024-01-10] MEDS: POTASSIUM CHLORIDE 20 MEQ TAB CR PO ONE (16:16)
[2024-01-11] VITALS (26 sets, daily range): BP systolic 109–124; BP diastolic 51–73; PULSE 49–78; RESP 14–30; TEMP 97.8–98.2; O2SAT 91–100
[2024-01-11] MEDS: POTASSIUM CHLORIDE 20 MEQ TAB CR PO ONE ×3 (00:01→04:09)
[2024-01-11 06:50] LABS: BASOPHILS # (AUTO) 0.1 (0.0-0.1); BASOPHILS % 0.7 % (0.0-1.0); EOSINOPHILS # (AUTO) 0.2 (0.0-0.4); HEMATOCRIT 29.4 % (38.2-49.6); HEMOGLOBIN 8.6 g/dL (14.0-18.0); LYMPHOCYTES # (AUTO) 1.7 (1.0-3.2); LYMPHOCYTES % 19.1 % (18.0-39.1); MEAN CORPUSCULAR HEMOGLOBIN 28.2 pg (28-32); MEAN CORPUSCULAR HGB CONC 29.3 g/dL (31-35); MEAN CORPUSCULAR VOLUME 96.4 fL (81-99); MONOCYTES # (AUTO) 0.5 (0.2-0.8); MONOCYTES % 5.3 % (4.4-11.3); NEUTROPHILS # (AUTO) 6.2 (2.1-6.9); NEUTROPHILS % 71.4 % (38.7-80.0); PLATELET COUNT 221 x10e3/uL (140-360); RED BLOOD COUNT 3.05 x10e6/uL (4.3-5.7); RED CELL DISTRIBUTION WIDTH 19.9 % (11.7-14.4); WHITE BLOOD COUNT 8.68 x10e3/uL (4.8-10.8)
[2024-01-11 07:16] LABS: ALBUMIN/GLOBULIN RATIO 0.6 (0.8-2.0); ANION GAP 11.8 mmol/L (8-16); BILIRUBIN,TOTAL 0.4 mg/dL (0.2-1.2); CALCIUM 8.2 mg/dL (8.4-10.2); CREATININE, SERUM 0.68 mg/dL (0.72-1.25); POTASSIUM 3.8 mmol/L (3.5-5.1); TOTAL PROTEIN 5.6 g/dL (6.5-8.1)
[2024-01-11] MEDS: BUMETANIDE INJ 0.25MG/ML 4ML VIAL IV ONE (10:52)
[2024-01-12] VITALS (18 sets, daily range): BP systolic 112–135; BP diastolic 53–71; PULSE 52–99; RESP 16–25; TEMP 97.8–99.9; O2SAT 90–95
[2024-01-12 06:55] LABS: BASOPHILS % 0.4 % (0.0-1.0); EOSINOPHILS # (AUTO) 0.1 (0.0-0.4); EOSINOPHILS % 1.7 % (0.0-6.0); HEMATOCRIT 33.2 % (38.2-49.6); HEMOGLOBIN 9.5 g/dL (14.0-18.0); LYMPHOCYTES # (AUTO) 2.1 (1.0-3.2); LYMPHOCYTES % 26.7 % (18.0-39.1); MEAN CORPUSCULAR HEMOGLOBIN 28.4 pg (28-32); MEAN CORPUSCULAR HGB CONC 28.6 g/dL (31-35); MEAN CORPUSCULAR VOLUME 99.4 fL (81-99); MONOCYTES # (AUTO) 0.5 (0.2-0.8); NEUTROPHILS # (AUTO) 4.9 (2.1-6.9); PLATELET COUNT 215 x10e3/uL (140-360); RED BLOOD COUNT 3.34 x10e6/uL (4.3-5.7); WHITE BLOOD COUNT 7.71 x10e3/uL (4.8-10.8)
[2024-01-12 07:38] LABS: ALBUMIN 2.2 g/dL (3.5-5.0); ALBUMIN/GLOBULIN RATIO 0.6 (0.8-2.0); ANION GAP 13.8 mmol/L (8-16); BILIRUBIN,TOTAL 0.4 mg/dL (0.2-1.2); CREATININE, SERUM 0.76 mg/dL (0.72-1.25); POTASSIUM 3.8 mmol/L (3.5-5.1); TOTAL PROTEIN 6.1 g/dL (6.5-8.1)
[2024-01-12 10:29] LABS: ANISOCYTOSIS MODERATE; HYPOCHROMASIA SLIGHT; PLATELET ESTIMATE ADEQUATE; PLATELET MORPHOLOGY COMMENT NORMAL; RBC MORPHOLOGY COMMENT ABNORMAL
[2024-01-12] MEDS: METOLAZONE 5 MG TAB PO ONE (13:54)
[2024-01-12] MEDS: DEXTROSE 5% 1,000 ML IV ONE (13:54)
[2024-01-13] VITALS (9 sets, daily range): BP systolic 90–141; BP diastolic 42–86; PULSE 54–96; RESP 16–25; TEMP 97.3–99.4; O2SAT 92–95
[2024-01-14] VITALS (10 sets, daily range): BP systolic 90–138; BP diastolic 42–84; PULSE 53–89; RESP 18–20; TEMP 97.4–98.4; O2SAT 93–97
[2024-01-14 06:07] LABS: BASOPHILS # (AUTO) 0.1 (0.0-0.1); BASOPHILS % 1.1 % (0.0-1.0); EOSINOPHILS # (AUTO) 0.1 (0.0-0.4); EOSINOPHILS % 2.1 % (0.0-6.0); HEMATOCRIT 29.4 % (38.2-49.6); HEMOGLOBIN 8.9 g/dL (14.0-18.0); LYMPHOCYTES % 30.3 % (18.0-39.1); MEAN CORPUSCULAR HEMOGLOBIN 28.8 pg (28-32); MEAN CORPUSCULAR HGB CONC 30.3 g/dL (31-35); MEAN CORPUSCULAR VOLUME 95.1 fL (81-99); MONOCYTES # (AUTO) 0.4 (0.2-0.8); MONOCYTES % 6.7 % (4.4-11.3); NEUTROPHILS # (AUTO) 3.8 (2.1-6.9); NEUTROPHILS % 57.5 % (38.7-80.0); PLATELET COUNT 212 x10e3/uL (140-360); RED BLOOD COUNT 3.09 x10e6/uL (4.3-5.7); RED CELL DISTRIBUTION WIDTH 19.5 % (11.7-14.4); WHITE BLOOD COUNT 6.57 x10e3/uL (4.8-10.8)
[2024-01-14 06:20] LABS: ALBUMIN 2.1 g/dL (3.5-5.0); ALBUMIN/GLOBULIN RATIO 0.6 (0.8-2.0); ANION GAP 11.6 mmol/L (8-16); BILIRUBIN,TOTAL 0.5 mg/dL (0.2-1.2); CALCIUM 8.2 mg/dL (8.4-10.2); CREATININE, SERUM 0.74 mg/dL (0.72-1.25); POTASSIUM 3.6 mmol/L (3.5-5.1); TOTAL PROTEIN 5.4 g/dL (6.5-8.1)
[2024-01-15] VITALS (11 sets, daily range): BP systolic 96–130; BP diastolic 53–73; PULSE 51–76; RESP 18–21; TEMP 97.5–98.4; O2SAT 91–98
[2024-01-16] VITALS (8 sets, daily range): BP systolic 108–114; BP diastolic 16–66; PULSE 56–75; RESP 16–21; TEMP 97.7–99; O2SAT 93–97
[2024-01-16] MEDS: ENOXAPARIN SOD INJ 40 MG/0.4 ML SYR SC SCH (17:12)
[2024-01-16] MEDS: FAMOTIDINE 20 MG TAB PO SCH (17:12)
[2024-01-17] VITALS (8 sets, daily range): BP systolic 87–124; BP diastolic 50–75; PULSE 59–73; RESP 17–21; TEMP 97.5–99.8; O2SAT 94–98
[2024-01-17 06:19] LABS: BASOPHILS % 0.3 % (0.0-1.0); EOSINOPHILS # (AUTO) 0.1 (0.0-0.4); EOSINOPHILS % 1.7 % (0.0-6.0); HEMOGLOBIN 8.2 g/dL (14.0-18.0); LYMPHOCYTES # (AUTO) 1.8 (1.0-3.2); LYMPHOCYTES % 31.8 % (18.0-39.1); MEAN CORPUSCULAR HEMOGLOBIN 28.4 pg (28-32); MEAN CORPUSCULAR HGB CONC 29.3 g/dL (31-35); MEAN CORPUSCULAR VOLUME 96.9 fL (81-99); MONOCYTES # (AUTO) 0.8 (0.2-0.8); MONOCYTES % 14.3 % (4.4-11.3); NEUTROPHILS # (AUTO) 2.9 (2.1-6.9); PLATELET COUNT 189 x10e3/uL (140-360); RED BLOOD COUNT 2.89 x10e6/uL (4.3-5.7); RED CELL DISTRIBUTION WIDTH 19.7 % (11.7-14.4); WHITE BLOOD COUNT 5.79 x10e3/uL (4.8-10.8)
[2024-01-17 06:31] LABS: ANION GAP 13.4 mmol/L (8-16); CALCIUM 8.4 mg/dL (8.4-10.2)
[2024-01-17 06:45] LABS: POTASSIUM 3.4 mmol/L (3.5-5.1)
[2024-01-17 07:03] LABS: CREATININE, SERUM 0.69 mg/dL (0.72-1.25)
[2024-01-18] VITALS (8 sets, daily range): BP systolic 99–142; BP diastolic 62–87; PULSE 58–75; RESP 17–20; TEMP 97.8–99.3; O2SAT 91–100
[2024-01-18] MEDS: IRON SUCROSE 100 MG in SODIUM CHLORIDE 0.9% 100 ML IV SCH (08:56)
[2024-01-19] VITALS: BP 139/87; PULSE 83; RESP 20; TEMP 97.8; O2SAT 100
[2024-01-19 04:00] VITALS: BP 109/72; PULSE 85; RESP 20; TEMP 98.9; O2SAT 95
[2024-01-19 08:10] VITALS: BP 117/63; PULSE 67; RESP 15; TEMP 97.5; O2SAT 93
[2024-01-19 08:53] VITALS: BP 117/63; PULSE 67; RESP 15; TEMP 97.5; O2SAT 93
[2024-01-19 09:45] VITALS: PULSE 67; RESP 18; O2SAT 93
[2024-01-19 13:49] VITALS: BP 108/57; PULSE 68; RESP 16; TEMP 97.8; O2SAT 98
[2024-01-19] MEDS ORDERED: SENNA-S TABLET PO SCH (17:00)
[2024-01-19] MEDS ORDERED: POLYETHYLENE GLYCOL 3350 17 GM PACK PO SCH (17:00)
== END 2024-01-19 16:30 | disposition hospice, home (50) | DRG 871 ==
LOC: ER 17:35 → ERHOLD 19:53 → MED/SURG2 12-30 00:04 → ICU 01-01 14:00 → MED/SURG3 01-13 07:25
PROVIDERS: ADMIT Internal Medicine; ATTEND Internal Medicine
PROC: 3E0333Z Introduction of Anti-inflammatory into Peripheral Vein, Percutaneous Approach (ICD-10-PCS; 2023-12-29)
PROC: 0T9B70Z Drainage of Bladder with Drainage Device, Via Natural or Artificial Opening (ICD-10-PCS; 2023-12-30)
PROC: 4A133R1 Monitoring of Arterial Saturation, Peripheral, Percutaneous Approach (ICD-10-PCS; principal; 2024-01-01)
PROC: 02HV33Z Insertion of Infusion Device into Superior Vena Cava, Percutaneous Approach (ICD-10-PCS; 2024-01-01)
PROC: 5A1945Z Respiratory Ventilation, 24-96 Consecutive Hours (ICD-10-PCS; 2024-01-01)
PROC: 03HY32Z Insertion of Monitoring Device into Upper Artery, Percutaneous Approach (ICD-10-PCS; 2024-01-01)
PROC: 0BH17EZ Insertion of Endotracheal Airway into Trachea, Via Natural or Artificial Opening (ICD-10-PCS; 2024-01-01)
PROC: 3E033XZ Introduction of Vasopressor into Peripheral Vein, Percutaneous Approach (ICD-10-PCS; 2024-01-01)
PROC: 5A1D70Z Performance of Urinary Filtration, Intermittent, Less than 6 Hours Per Day (ICD-10-PCS; 2024-01-02)
PROC: 30233N1 Transfusion of Nonautologous Red Blood Cells into Peripheral Vein, Percutaneous Approach (ICD-10-PCS; 2024-01-04)
DX: A41.89 Other specified sepsis (principal); G92.8 Other toxic encephalopathy; N17.0 Acute kidney failure with tubular necrosis; R57.8 Other shock; J96.01 Acute respiratory failure with hypoxia; J12.82 Pneumonia due to coronavirus disease 2019; U07.1 COVID-19; J69.0 Pneumonitis due to inhalation of food and vomit; R65.21 Severe sepsis with septic shock; I13.0 Hypertensive heart and chronic kidney disease with heart failure and stage 1 through stage 4 chronic kidney disease, or unspecified chronic kidney disease; I50.33 Acute on chronic diastolic (congestive) heart failure; E22.2 Syndrome of inappropriate secretion of antidiuretic hormone; E87.20 Acidosis, unspecified; L89.310 Pressure ulcer of right buttock, unstageable; L89.226 Pressure-induced deep tissue damage of left hip; R62.7 Adult failure to thrive; E88.09 Other disorders of plasma-protein metabolism, not elsewhere classified; E87.5 Hyperkalemia; Z78.1 Physical restraint status; Z66 Do not resuscitate; Z51.5 Encounter for palliative care; E11.51 Type 2 diabetes mellitus with diabetic peripheral angiopathy without gangrene; E11.22 Type 2 diabetes mellitus with diabetic chronic kidney disease; N18.9 Chronic kidney disease, unspecified; D63.1 Anemia in chronic kidney disease; F09 Unspecified mental disorder due to known physiological condition; I48.91 Unspecified atrial fibrillation; J43.9 Emphysema, unspecified; E78.00 Pure hypercholesterolemia, unspecified; K59.00 Constipation, unspecified; F31.9 Bipolar disorder, unspecified; R53.81 Other malaise; E87.6 Hypokalemia; F01.50 Vascular dementia, unspecified severity, without behavioral disturbance, psychotic disturbance, mood disturbance, and anxiety; E66.01 Morbid (severe) obesity due to excess calories; Z68.33 Body mass index [BMI] 33.0-33.9, adult; Z79.4 Long term (current) use of insulin; Z79.01 Long term (current) use of anticoagulants; Z99.3 Dependence on wheelchair; Z88.0 Allergy status to penicillin; Z87.891 Personal history of nicotine dependence
CPT/HCPCS: 31500; 36415; 36600; 70450; 71045; 71260; 74018; 74176; 74177; 76770; 80048; 80053; 81001; 82140; 82550; 82570; 82805; 82948; 83036; 83605; 83735; 83880; 84100; 84132; 84156; 84443; 84484; 84550; 85014; 85018; 85025; 85610; 85730; 86706; 86707; 86850; 86900; 86920; 87040; 87086; 87350; 87400; 90962; 93005; 93306; 94002; 94003; 94640; 94799; 96372; 99252; 99285; J0360; J0696; J1644; J1650; J1756; J1940; J2150; J2185; J3480; J7030; J7040; J7050; J7070; J7799; P9016; Q9967; U0002